=== PATIENT | male | born 1990 | race Caucasian/White ===

== ENCOUNTER 2018-03-10 21:32 | Emergency (ER) | payer SELFPAY ==
[2018-03-10] MEDS ORDERED: Ziprasidone 20 MG CAP PO SCH (22:00)
[2018-03-11] MEDS ORDERED: traZODone HCl 50 MG TAB ONE (00:49)
[2018-03-11] MEDS ORDERED: Lorazepam 2 MG/ML VIAL ONE (00:52)
== END 2018-03-11 12:25 | disposition home or self-care (01) ==
LOC: ERS 21:32
DX: F30.9 Manic episode, unspecified (principal); F90.9 Attention-deficit hyperactivity disorder, unspecified type; Z79.899 Other long term (current) drug therapy; F17.220 Nicotine dependence, chewing tobacco, uncomplicated
CPT/HCPCS: 93005; 96374; J2060